=== PATIENT | female | born 1975 | race Caucasian/White ===

== ENCOUNTER 2017-09-08 14:28 | Emergency (ER) | payer MEDICAID | END 2017-09-08 17:15 | disposition home or self-care (01) | LOC: D.ER 14:28 | DX: S00.83XA Contusion of other part of head, initial encounter (principal); S00.33XA Contusion of nose, initial encounter; W22.8XXA Striking against or struck by other objects, initial encounter; Y93.89 Activity, other specified; Y92.89 Other specified places as the place of occurrence of the external cause; F17.200 Nicotine dependence, unspecified, uncomplicated ==

== ENCOUNTER → 2017-11-20 15:19 | Outpatient (CLI) | payer MEDICAID | END | disposition home or self-care (01) | LOC: D.MRI 15:19 | DX: S83.222A Peripheral tear of medial meniscus, current injury, left knee, initial encounter (principal); X58.XXXA Exposure to other specified factors, initial encounter; Y93.89 Activity, other specified; Y92.89 Other specified places as the place of occurrence of the external cause; M25.562 Pain in left knee ==

== ENCOUNTER 2018-01-10 07:35 | Day surgery (SDC) | payer BC ==
[2018-01-09 12:30] LABS: HEMOGLOBIN 12.1 g/dL (12-16); MCH 30.7 pg (26.0-34.0); MCHC 33.6 g/dL (31.0-37.0); MCV 91.4 fL (80.0-100.0); MEAN PLATELET VOLUME 12.1 fL (7.4-10.4); RBC 3.94 10x6/uL (4.00-5.40); RDW 12.4 % (11.5-14.5); WBC 5.6 10x3/uL (4.8-10.8)
[~2018-01-10] VITALS: Ht 172.7 cm; Wt 63.6 kg
--- NOTE | ~2018-01-10 | OP ---
PATIENT NAME: LAISHA MCLAUGHLIN MEDICAL RECORD: [id number] :75 LOCATION:[facility] ADMISSION DATE: SURGEON: NICANOR STANLEY DO DATE OF OPERATION: 01/10/2018 PROCEDURE PERFORMED: Left ACL reconstruction with allograft and left lateral meniscal repair. PREOPERATIVE DIAGNOSES: Left lateral meniscal tear and anterior cruciate ligament tear. POSTOPERATIVE DIAGNOSES: Left lateral meniscal tear and anterior cruciate ligament tear with osteopenia. INDICATIONS: Ms. Mclaughlin is a 42-year-old female who presented to my office with an MRI showing meniscal tear and the ACL tear. She said she had knee pain for quite some time, it has been hurting her for a long time and she felt unstable. She wanted something done. Her knee was catching, popping and locking and she wanted to get it fixed and also felt unstable. We discussed the risks and benefits of the procedure with her and she was consented for the procedure including infection, bleeding, damage to nerves, vessels, any damaged bone fracture, and need for further surgery. DESCRIPTION OF PROCEDURE: The patient was given a block by anesthesia in the preoperative area and then given antibiotics 2 grams Ancef, taken to the operative suite, laid in the supine position, given general anesthetic and then the left lower extremity was prepped and draped in sterile fashion with a tourniquet above the knee under the drapes, positioned for the ACL reconstruction. The procedure began establishing a lateral portal with an 11-blade scalpel and the scope was then entered into the knee. Inspection began. There was nothing seen in the suprapatellar pouch and the patellar looked to track very well. Lateral gutter did not have any loose bodies neither did the medial gutter. The knee was then flexed down and the medial compartment was entered. The medial portal was then established first with an 18-gauge spinal needle and then with an 11-blade scalpel. After this was established, a probe was put in. The medial meniscus was probed. No tears were seen in the menisci. The ACL was probed and seen to be very loose and the knee was figured forward and the lateral compartment was entered. There is a large tear in the posterior horn of the lateral meniscus and the meniscus would sublux into the joint. Due to the peripheral tear that it was, I decided even though she is 42 to fix it due to the instability of the meniscus as such a peripheral tear, 2 Hess and Nephew quick fixes were put in in a horizontal mattress fashion. Fixed the meniscus, secured it as it did not sublux after being probed, after being fixed. The ACL was then taken down and the stumps were left in the areas of the original for the tunnels. The femoral tunnel was done first and the graft was being prepared on the back table is anterior tib graft. The tunnels were 9.5, first drilled in the femoral tunnel, seemed to be in good position and then the tibial tunnel was done, but right over where the ACL stump was from before. This was drilled and then the graft was passed and the button flipped on the lateral cortex of the femur and then tensioning it and we went to put the fixation device from the tibia and as I entered in the tunnel of the tibia, the anterior cortex of the tibia blew out due to the patient's soft bone quality. It was approximately a cm of bone or more that blew out on the anterior tibia. Once this was discovered, the graft was pulled and the button that had flipped on the femur cut out as well. We then switched to a larger button and repassed OPERATIVE REPORT [id number] LAISHA MCLAUGHLIN JOHN the graft and then used a large zip-lock 20 mm toggle button from [employer] and then used a cancellous screw with a washer for fixation on the tibia due to the soft bone quality, had to redo it twice. On the second time, we reamed down to make a washer more flushed and indeed due to the soft quality of bone when it has been tightened down it sunk into the tibia itself, saw how soft her bone was. An x-ray was then taken to ensure that the screw was not out of the posterior cortex of the tibia and it was not. This screw measured to be of 44 with a washer lock washer and we then addressed the tibia and another tunnel was attempted prior to this, but there was not enough room in the notch of the tibia to do that, so we used a DBM plus, impacted into the tunnel over the graft and all the other hardware that was in there was removed including the fixation from [employer]. Having this put in, the graft was taut and we then irrigated the wounds thoroughly. The incision over the tibia was closed with 0 Vicryl closing the fascia over the tibial tunnel and then 2-0 Vicryls in an inverted interrupted on the skin as well as over the femur and then 4-0 Monocryl was used on the femur for a horizontal mattress to close it. The lateral portal, which had been enlarged due to some of the removal, the capsule was closed with 0 Vicryl in a ywggvs-io-cdivn stitch and then the skin was closed with 2-0 Vicryl and then 4-0 Monocryl was put in a horizontal mattress on the skin. The other peg holes did create another medial portal. The other ones were closed with 4-0 Monocryl in inverted interrupted fashion and then 4-0 Monocryl ran on the skin in a subcuticular fashion on the tibia and the large incision. Steri-Strips were then placed over each of the incisions and Adaptic, 4 x 4 and ABD and Webril were placed over the knee and 6-inch Britton was placed over the knee and she was placed in a knee immobilizer and awakened and taken to recovery in stable condition. Tourniquet put at the beginning was 120 minutes and it was let down and then up again for about 5 minutes. Blood loss approximately 100 mL. After the wounds were closed, there was [employer] injectable graft put in through a lateral portal 1 cc. TRANSINT:[id number] Voice Confirmation ID: [id number] DOCUMENT ID: [id number] NICANOR STANLEY DO at 2307 CC: [id number] DICTATION DATE: 01/10/18 1459 MOBILE HOME INSTALLER: 01/10/18 2220 [facility] 01/10/18 [id number] [place] [address]
[2018-01-10 08:02] VITALS: BP 105/68; Ht 172.7 cm; Wt 63.6 kg
[2018-01-10] MEDS ORDERED: PERCOCET 7.5/321 TAB PO (14:40)
[2018-01-10] MEDS ORDERED: HYDROXYZINE HCL50 MG PO (14:41)
== END 2018-01-10 16:30 | disposition home or self-care (01) ==
LOC: D.OPS 07:35 → D.PAN 09:45 → D.OPS 16:30
PROVIDERS: Anesthesiology
DX: S83.282A Other tear of lateral meniscus, current injury, left knee, initial encounter (principal); S83.512A Sprain of anterior cruciate ligament of left knee, initial encounter; F17.200 Nicotine dependence, unspecified, uncomplicated; Z01.812 Encounter for preprocedural laboratory examination

== ENCOUNTER → 2018-04-07 07:08 | Outpatient (CLI) | payer BC ==
[2018-01-10 08:02] VITALS: BMI 21.3
[~2018-04-07 07:08] MED LIST: HYDROXYZINE HCL50 MG PO; PERCOCET 7.5/321 TAB PO
== END | disposition home or self-care (01) ==
LOC: D.US 07:08
DX: R22.42 Localized swelling, mass and lump, left lower limb (principal)

== ENCOUNTER 2018-06-24 06:25 | Day surgery (SDC) | payer BC ==
[2018-06-23 10:24] LABS: HEMATOCRIT 41.7 % (36.0-48.0); HEMOGLOBIN 14.1 g/dL (12-16); MCH 31.4 pg (26.0-34.0); MCHC 33.8 g/dL (31.0-37.0); MCV 92.9 fL (80.0-100.0); MEAN PLATELET VOLUME 12.1 fL (7.4-10.4); RBC 4.49 10x6/uL (4.00-5.40); RDW 13.3 % (11.5-14.5); WBC 7.1 10x3/uL (4.8-10.8)
[2018-06-24] VITALS (9 sets, daily range): BP systolic 91–174; BP diastolic 40–75; Ht 172.7 cm; Wt 65.0 kg
[~2018-06-24] VITALS: Ht 172.7 cm; Wt 65.0 kg
--- NOTE | ~2018-06-24 | OP ---
PATIENT NAME: LAISHA MCLAUGHLIN MEDICAL RECORD: [id number] :75 LOCATION:[facility].2214 ADMISSION DATE: SURGEON: MOMO STANLEY DO DATE OF OPERATION: 06/24/2018 PROCEDURE PERFORMED: Left ACL revision reconstruction and right knee injection. PREOPERATIVE DIAGNOSES: Right knee pain and left knee anterior cruciate ligament failure. POSTOPERATIVE DIAGNOSES: Right knee pain and left knee anterior cruciate ligament failure. INDICATIONS: Ms. Mclaughlin is a 43-year-old female who had her ACL done back in December of this year. During the procedure, her bone in the tibia was too soft to hold the graft, so it was fixed outside the tunnel and then bone graft was packed into a graft hole. Throughout the last 5 months, she has had trouble with her knee locking, giving away and she wanted it redone. It was felt unstable to her and began to impinge. She said she could not flex past 90 degrees. She is understanding of the risks and benefits of procedure and her bone was extremely soft and she was advised to quit smoking, which she did not and that we may have trouble getting the graft to stay at this time too. She voiced understanding of that and consented to the procedure. SURGEON: Momo Stanley DO DESCRIPTION OF PROCEDURE: The patient was given a block by anesthesia in the preoperative area and taken to the operative suite. The left lower extremity was prepped and draped in sterile fashion with a tourniquet above the knee. Once she was prepped and draped, a timeout was performed, everyone was in agreeance with the correct side, site and the patient. Lateral portal was inserted with an 11-blade scalpel and scope was entered into the knee. The suprapatellar pouch was inspected. No loose bodies were seen as well as the medial and lateral gutters. The medial meniscus and lateral meniscus were both inspected as well and probed, and no tears were seen. The tear that had been there previously in the lateral meniscus was well healed, I then checked the ACL and it was loose indeed. A medial portal was established and then the ACL graft was removed with a shaver. The femoral tunnel was then inspected and the femoral bone was found to be extremely soft in the notch. Once the graft was removed from the femoral tunnel, we attempted to remove the button that was on the femur from before and could not be found. This was done with the assistance of fluoroscopy. Apparently, it was borrowed into the cortex. Then, a beeth needle was brought through the cortex into the knee itself and then we passed another one from inside the knee to outside the knee and with a suture on it in order to pass the graft. This was then secured. Then, regained it on the tibia. The tourniquet was let down at a time and it been up for 84 minutes and then the tibial placement had to be around the screw that was in the tibia. Once we got good placement of the pin, we shot up and then we redirected another pin to be more lateral. The other pin was then removed and we prepared the graft. We used an Achilles bone block on one end. I then imbricated or tubularized the Achilles graft, it fit through a 9.5. Then, the tibia was prepared. Once it was confirmed to be in good position, the tunnel placement on x-ray, we started with a 65 reamer and then reamed up to an 8. Then, the dilators were used for a 9 and 9.5. This was in order to preserve the bone due to the soft nature and the graft that had been on the previous tunnel was OPERATIVE REPORT [id number] LAISHA MCLAUGHLIN removed from the tibia with a shaver. Once this was done, the graft was prepared and passed up to the femur through the tibial tunnel. The large button from [employer] with 20-mm in diameter was used on that femur and this was tied down quite and a knot pusher was used to push the knots down. It was tied down to the posterior and lateral femur and seemed to fit well, then the tibia, a whipstitch was used on the graft that was hanging out of the tibia and the graft was tensioned and then an interference screw of 9-mm interference screw was put into the tibial tunnel, had very good purchase and the graft was quite taut. The anterior drawer and Randy's tests were done and seen to have a very good tight knee ACL graft and then it was probed from the inside of the joint and the same was the case with the knee flexed. The graft was tensioned and the interference screw was put in with the knee in extension. A tourniquet had been put back up prior to starting the tunnel in the tibia and then it was let down. It was up for a total, between the 2 times, it was of 2 hours and 8 minutes. The patient was redosed Ancef. The wounds were thoroughly irrigated. The IT band had been incised on the lateral femur, it was closed with 0 Vicryl in a waxxoi-dj-twpud fashion and then 2-0 Vicryl on the skin as well as to the incisions that were on the tibia that were made for the tibial tunnel and then 4-0 Monocryl ran on each of those. In the portal sites, the anteromedial and anterolateral portals were closed with 4-0 Monocryl in inverted interrupted fashion and Steri-Strips were placed over all the wounds. Adaptic, 4 x 4s, ABD was then put on the knee and Webril to secure that and then Britton wrap and then a NIC hose stocking up to the knee. The right knee was then prepped with alcohol prep and then injected with 4 mL of 1% lidocaine without epinephrine and 1 mL of Kenalog, which was 40 mg of Kenalog. Then, Tegaderm and 2 x 2 were put on the patient, over the injection site of the right knee. Blood loss was approximately 50 mL. COMPLICATIONS: None. TRANSINT:[id number] Voice Confirmation ID: [id number] DOCUMENT ID: [id number] MOMO STANLEY DO at 1849 CC: [id number] DICTATION DATE: 06/24/18 1524 [employer] ARTILLERY REPAIRER: 06/24/18 1617 [facility] [address] [place] [address]
[~2018-06-24 06:25] MED LIST changes: +VITAMIN D3400 UNI1 PO
[2018-06-25 05:18] VITALS: BP 100/36
[2018-06-25 05:48] LABS: HEMATOCRIT 30.3 % (36.0-48.0)
[2018-06-25 07:49] VITALS: BP 94/48
[2018-06-25] MEDS ORDERED: VISTARIL50 MG PO (10:38)
[2018-06-25] MEDS ORDERED: OXYCODONE HCL5 MG PO (10:38)
[2018-06-25] MEDS ORDERED: KEFLEX500 MG PO (10:38)
[2018-06-25] MEDS ORDERED: ZOFRAN ODT4 MG/UDTAB PO (10:41)
[2018-06-25 12:12] VITALS: BP 94/44
[2018-06-25] MEDS ORDERED: NICODERM C1 PATCH .2 TRANSDERM ×2 (13:52→13:56)
== END 2018-06-25 18:14 | disposition home or self-care (01) ==
LOC: D.OPS 06:25 → D.MS 06:25 → D.PAN 07:30 → D.OPS 07:30 → D.MS 15:42 → D.OPS 06-25 18:14
PROVIDERS: Anesthesiology; Orthopaedic Surgery
DX: S83.511D Sprain of anterior cruciate ligament of right knee, subsequent encounter (principal); M83.8 Other adult osteomalacia; M77.8 Other enthesopathies, not elsewhere classified

== ENCOUNTER → 2018-10-01 06:30 | Outpatient (CLI) | payer BC ==
[2018-06-24 16:30] VITALS: BMI 21.7
[~2018-10-01 06:30] MED LIST changes: +KEFLEX500 MG PO; +NICODERM C1 PATCH .2 TRANSDERM; +OXYCODONE HCL5 MG PO; +VISTARIL50 MG PO; +ZOFRAN ODT4 MG/UDTAB PO
== END | disposition home or self-care (01) ==
LOC: D.US 06:30
DX: R10.11 Right upper quadrant pain (principal)

== ENCOUNTER → 2018-11-03 12:34 | Outpatient (CLI) | payer BC ==
[2018-06-24 16:30] VITALS: BMI 21.7
== END | disposition home or self-care (01) ==
LOC: D.NM 12:34
DX: R10.11 Right upper quadrant pain (principal)

== ENCOUNTER → 2018-11-27 13:31 | Outpatient (CLI) | payer BC ==
[2018-06-24 16:30] VITALS: BMI 21.7
== END | disposition home or self-care (01) ==
LOC: D.US 13:31
DX: R60.0 Localized edema (principal)

== ENCOUNTER → 2019-01-02 16:01 | Outpatient (CLI) | payer BC ==
[2018-06-24 16:30] VITALS: BMI 21.7
== END | disposition home or self-care (01) ==
LOC: D.CT 16:01
DX: R10.11 Right upper quadrant pain (principal)

== ENCOUNTER → 2019-03-05 07:08 | Outpatient (CLI) | payer BC ==
[~2019-03-05 07:08] MED LIST changes: +PERCOCET 5-3251 TAB PO
== END | disposition home or self-care (01) ==
LOC: D.MRI 07:08
DX: M17.12 Unilateral primary osteoarthritis, left knee (principal)

== ENCOUNTER 2019-07-24 05:26 | Day surgery (SDC) | payer BC ==
[~2019-07-24] VITALS: Ht 172.7 cm; Wt 66.7 kg
[~2019-07-24 05:26] MED LIST changes: -PERCOCET 5-3251 TAB PO
[2019-07-24 05:40] LABS: HEMATOCRIT 40.2 % (36.0-48.0); HEMOGLOBIN 13.7 g/dL (12-16); MCH 31.3 pg (26.0-34.0); MCHC 34.1 g/dL (31.0-37.0); MCV 91.8 fL (80.0-100.0); MEAN PLATELET VOLUME 12.1 fL (7.4-10.4); RBC 4.38 10x6/uL (4.00-5.40); RDW 12.5 % (11.5-14.5)
[2019-07-24 06:13] VITALS: BP 102/61; Ht 172.7 cm; Wt 66.7 kg
[2019-07-24] MEDS ORDERED: PERCOCET 5-3251 TAB PO (08:04)
--- NOTE | 2019-07-24 09:25 | NUR ---
WALKING AROUND ROOM WITH CRUTCHES WITHOUT UNSTEADINESS. DISCHARGE INSTRUCTIONS REVIEWED WITH PATIENT. AWAITING PATIENT'S SPOUSE TO ARRIVE TO PROVIDE TRANSPORTATION. PATIENT LYING IN BED, WATCHING TV. DENIES COMPLAINTS
--- NOTE | 2019-07-24 10:44 | OP ---
PATIENT NAME: LAISHA MCLAUGHLIN MEDICAL RECORD: [id number] :75 LOCATION:[facility] ADMISSION DATE: SURGEON: MOMO STANLEY DO DATE OF OPERATION: 07/24/2019 PROCEDURE PERFORMED: Right knee injection, left knee arthroscopy with partial lateral meniscectomy and abrasion chondroplasty of patella. 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 INDICATIONS: Ms. Mclaughlin is a 44-year-old female, who has undergone 2 ACL reconstructions, on the first one her tibia fratured and did not hold the graft, the second one used an Achilles tendon graft with a bone block on the femur side. At this time, it had not ingrown apparently after the scope. She had had continued knee pain. She has had several rounds of injections and lots of physical therapy, and she had continued knee pain. Had an MRI, which showed the ACL was intact on the MRI. She had some chondromalacia of the patella. Wanted something done about it. So, I told her we would scope it and take a look. She was informed of the risks including infection, bleeding, damage to nerves and vessels, need for further surgery, continued instability, and continued pain. She signed the consent. SURGEON: Momo Stanley DO DESCRIPTION OF PROCEDURE: The patient was taken to the operative suite, laid in supine position, given general anesthetic and LMA was placed. Left lower extremity was prepped and draped in sterile fashion. A time-out was performed and everyone was in agreement with correct side, site, patient and procedure. The procedure was then began with the knee flexed down the lateral portal. The scope was established with 11-blade scalpel. The scope was then entered in the knee. The suprapatellar pouch appeared to be clear of any debris. However, she did see that the grade II chondromalacia of the patella, mostly of the lateral facet. Lateral gutter was clear of debris as well as the medial gutter. The knee was then brought from extension and flexion and then medial compartment was entered. An 18-gauge spinal needle was then used to establish medial portal with an 11-blade scalpel and a trocar was then entered. Medial meniscus was probed and seen to be in good position. No tears in there. The ACL was then probed and seen to be loose. The bone block had migrated into the notch of the knee from the femoral tunnel. The lateral compartment was then entered by [id number]-dp-bojwsrm the knee. A small tear on the very inside of the middle portion of the meniscus. This was trimmed out and chewed back with a shaver to a stable point. The knee was then brought to extension again and the abrasion chondroplasty was done on the patella removing all the cartilage that was hanging down, the loose cartilage. A partial synovectomy was also performed at that time and the water was turned off. Suction was turned on, and the scope was removed from the knee. The portal sites were then closed with 4-0 Monocryl in an inverted interrupted fashion and injected 0.25% Marcaine with epinephrine, about 2 mL in each side of the portals. The right knee was then cleaned with alcohol pad and injection of 40 mg and 4 mL of 1% lidocaine without epinephrine was injected to the suprapatellar pouch of the right knee. The left knee was dressed with Steri-Strips, Adaptic, 4 x 4's, ABD, Webril, Britton wrap, and NIC OPERATIVE REPORT [id number] LAISHA MCLAUGHLIN stocking up to the knee. She was then awakened and taken to recovery in stable condition. BLOOD LOSS: Minimal. COMPLICATIONS: None. TRANSINT:[id number] Voice Confirmation ID: [id number] DOCUMENT ID: [id number] MOMO STANLEY DO at 1044 CC: [id number] DICTATION DATE: 07/24/19 08 DICTATING TRANSCRIBING MACHINE SERVICER: 07/24/19 09 [facility] 07/24/19 [id number] [place] [address]
== END 2019-07-24 09:40 | disposition home or self-care (01) ==
LOC: D.OPS 05:26 → D.PAN 08:30 → D.OPS 09:40
PROVIDERS: Anesthesiology; ATTEND Orthopaedic Surgery
DX: M22.42 Chondromalacia patellae, left knee (principal); M96.89 Other intraoperative and postprocedural complications and disorders of the musculoskeletal system; Y83.9 Surgical procedure, unspecified as the cause of abnormal reaction of the patient, or of later complication, without mention of misadventure at the time of the procedure; M25.561 Pain in right knee

== ENCOUNTER → 2019-09-09 17:21 | Outpatient (CLI) | payer BC ==
[2019-07-24 06:13] VITALS: BMI 22.4
[~2019-09-09 17:21] MED LIST changes: +PERCOCET 5-3251 TAB PO
[2019-09-09 17:37] LABS: BASOPHILS 0.4 % (0-2); EOSINOPHILS 1.4 % (0-7); HEMATOCRIT 39.8 % (36.0-48.0); HEMOGLOBIN 13.3 g/dL (12-16); IMMATURE GRANULOCYTES 0.2 % (0-5); LYMPHOCYTES 41.6 % (15-50); MCH 31.1 pg (26.0-34.0); MCHC 33.4 g/dL (31.0-37.0); MCV 93.2 fL (80.0-100.0); MEAN PLATELET VOLUME 12.1 fL (7.4-10.4); MONOCYTES 8.5 % (2-11); NEUTROPHILS 47.9 % (40-80); PLATELET COUNT 196 10x3/uL (130-400); RBC 4.27 10x6/uL (4.00-5.40); RDW 12.6 % (11.5-14.5); WBC 5.6 10x3/uL (4.8-10.8)
[2019-09-09 18:00] LABS: CARBON DIOXIDE 29.3 mmol/L (21.0-32.0); CREATININE - SERUM 0.9 mg/dL (0.6-1.3); MAGNESIUM - SERUM 2.1 mg/dL (1.8-2.4); POTASSIUM - SERUM 4.3 mmol/L (3.5-5.1)
[2019-09-09 18:05] LABS: % SATURATION 20 % (15-55); IRON 55 ug/dl (35-150); TOTAL IRON BIND CAPACITY 271 ug/dl (260-445); UNSAT IRON BIND CAPACITY 216 ug/dl (150-375)
== END | disposition home or self-care (01) ==
LOC: D.LABREF 17:21
PROVIDERS: ATTEND Orthopaedic Surgery
DX: M25.561 Pain in right knee (principal); R53.83 Other fatigue

== ENCOUNTER 2019-11-20 12:00 | Day surgery (SDC) | payer BC ==
[~2019-11-20] VITALS: Ht 172.7 cm; Wt 44.9 kg
[2019-11-20 12:26] LABS: ANION GAP 10.7 mmol/L (8-16); CALCIUM 8.9 mg/dL (8.5-10.1); CARBON DIOXIDE 29.5 mmol/L (21.0-32.0); CREATININE - SERUM 0.9 mg/dL (0.6-1.3); POTASSIUM - SERUM 4.2 mmol/L (3.5-5.1)
[2019-11-20 12:37] LABS: HEMATOCRIT 41.2 % (36.0-48.0); HEMOGLOBIN 13.8 g/dL (12-16); MCH 31.4 pg (26.0-34.0); MCHC 33.5 g/dL (31.0-37.0); MCV 93.6 fL (80.0-100.0); MEAN PLATELET VOLUME 12.5 fL (7.4-10.4); RBC 4.4 10x6/uL (4.00-5.40); RDW 12.7 % (11.5-14.5)
[2019-11-20 13:10] VITALS: BP 101/59; Ht 172.7 cm; Wt 44.9 kg
[2019-11-20] MEDS ORDERED: ZOFRAN ODT4 MG/UDTAB PO (17:06)
[2019-11-20] MEDS ORDERED: PERCOCET 5-3251 TAB PO (17:07)
--- NOTE | 2019-11-20 17:28 | NUR ---
ICE APPLIED ORDERED. BP IMPROVED AND PRESSURE BAG REMOVED. PT SITTING UP IN BED RESTING QUIETLY. RR NONLABORED ON RA. NO CURRENT NEEDS, WILL CTM.
--- NOTE | 2019-11-21 08:52 | OP ---
PATIENT NAME: LAISHA MCLAUGHLIN MEDICAL RECORD: [id number] :75 LOCATION:[facility] ADMISSION DATE: SURGEON: MOMO STANLEY DO DATE OF OPERATION: 11/20/2019 PROCEDURE PERFORMED: Left knee anterior cruciate ligament debridement. PREOPERATIVE DIAGNOSIS: Left knee anterior cruciate ligament failure with loose body and ACL left knee. POSTOPERATIVE DIAGNOSIS: Left knee anterior cruciate ligament failure with loose body and ACL left knee. INDICATIONS: Ms. Mclaughlin is a 44-year-old female well known to me, who had 2 ACLS done, the last one was a bone block with Achilles tendon graft. She had felt like there is something inside her knee, I went and looked before and did saw some of the bone block, but not all of it, I did not want to debride it or talk about it, but I checked the rest of her knee did a debridement and she did well initially postop and fell and then started having more pain. She wanted that bone block integrated into her femur out. Informed her of the risks including infection, bleeding, damage to nerves or vessels, knee instability. She is of aware that and she signed the consent. SURGEON: Momo Stanley DO DESCRIPTION OF PROCEDURE: The patient was taken to the operative suite, laid in supine position, given a gram of Ancef preoperatively. The patient was sedated and LMA was placed. The left lower extremity was then prepped and draped in sterile fashion. Time-out was performed. Everyone was in agreement with the correct side, site, patient, and procedure. I then began by opening the lateral portal with an 11-blade scalpel, trocar entered and the lateral gutter was inspected as well as suprapatellar pouch, medial gutter. Medial portal was established with 18-gauge spinal needle and 11-blade scalpel. Trocar entered into the knee. I probed what was left of the ACL. There was a small bone chip on the lateral side of it and this was debrided chewed out and also debrided with the shaver. The medial meniscus was then probed and no tears seen in it. The cartilage was in good shape on the medial side and lateral side. There is no damage to the menisci on medial or laterally. I did do a small debridement on the patella at the fat pad. The water was turned off. Suction was turned on and then the portal sites were closed with 4-0 Monocryl in inverted interrupted fashion and Steri-Strips. Adaptic, 4 x 4s, Webril, and Britton wrap were then placed on the knee. She was awakened and taken to recovery in stable condition. ESTIMATED BLOOD LOSS: Minimal. COMPLICATION: None. TRANSINT:[id number] Voice Confirmation ID: [id number] DOCUMENT ID: [id number] OPERATIVE REPORT [id number] LAISHA MCLAUGHLIN MICHAEL D, DO at 0852 CC: [id number] DICTATION DATE: 11/20/19 170 BRIDGE BUILDER: 11/21/19 0307 [facility] 11/20/19 [facility] [address] [place] [address]
== END 2019-11-20 18:40 | disposition home or self-care (01) ==
LOC: D.OPS 12:00
PROVIDERS: Anesthesiology; ATTEND Orthopaedic Surgery
DX: M79.605 Pain in left leg (principal); M25.562 Pain in left knee; S83.512A Sprain of anterior cruciate ligament of left knee, initial encounter; X58.XXXA Exposure to other specified factors, initial encounter

== ENCOUNTER → 2020-06-06 15:06 | Outpatient (CLI) | payer BC ==
[2019-11-20 13:10] VITALS: BMI 22.8
== END | disposition home or self-care (01) ==
LOC: D.MRI 15:06
PROVIDERS: ATTEND Orthopaedic Surgery
DX: M25.552 Pain in left hip (principal)

== ENCOUNTER → 2020-06-09 07:19 | Outpatient (CLI) | payer BC ==
[2019-11-20 13:10] VITALS: BMI 22.8
--- NOTE | ~2020-06-09 | HEMODYNAMI ---
PATIENT:LAISHA MCLAUGHLIN MEDICAL RECORD: [id number] : 75 LOCATION:[facility] ADMISSION DATE: 06/09/20 Generatedon:06/09/20208:16 Patient name: LAISHA MCLAUGHLIN Patient #: [id number] SSN: DO B: 1975 Date of study: 06/09/2020 Page: Of Hemodynamic Procedure Report Patient Data Patient Demographics Procedure consent was obtained First Name: LAISHA Gender: Female Last Name: ARNOLDO : 1975 Middle Initial: JOHN Age: 45 year(s) Patient #: [id number] Race: Unknown Additional ID: [id number] Contact details [address]: [address] [place] [address] State: [place] City: [place] Zip code: [address] Admission Admission Data Admission Date: 06/09/2020 Admission Time: 7:19 Procedure Procedure Types Cath Procedure Peripheral Cath Diagnostic Procedure Miscellaneous Aspiration/Injection (Joint) Procedure Description Procedure Date Procedure Date: 06/09/2020 Procedure Start Time: 8:02 Procedure Staff Name Function Momo Root MD Performing Physician Mike Guthrie RT Monitor Procedure Data Cath Procedure Fluoroscopy Diagnostic fluoroscopy Total fluoroscopy Time: 1 time: 1 min min Diagnostic fluoroscopy Total fluoroscopy dose: 3 dose: 3 mGy mGy Hemodynamics Rest Pre Cath Intra NCS Post Cath Procedure Log Time Note 7:55:25 Mike Guthrie RT (R) (CV) sent for patient. Start room use. 7:56:32 Patient received from Outpatients to IR Alert and oriented. Tansferred to table in Supine position. 7:56:35 Signed procedure consent form obtained from patient. 7:56:36 Full Disclosure recording started 7:56:39 7:56:41 Pre-procedure instructions explained to patient. 7:56:42 Pre-op teaching completed and patient verbalized understanding. 7:57:14 Is patient on blood thinner?No 7:58:21 Left Hip was prepped with betadine and draped in sterile fashion. 8:02:17 Physician arrived 8:02:17 --------ALL STOP TIME OUT------ 8:02:18 Final Timeout: patient, procedure, and site verified with staff and physician. All members of the team are in agreement. 8:02:26 Left groin site verified by team. 8:02:32 Sedation plan: Local Anesthetic Medication:Lidocaine 8:02:43 Procedure started. 8:02:49 Local anesthetic to Left Hip with Lidocaine 1% by Momo Root MD.INITIAL ACCESS ONLY 8:02:52 SAFE-T PLUS MYELOGRAM TRAY opened to sterile field. 8:13:48 Procedure ended.(Physican Out) 8:14:17 Fluoroscopy time 01.00 minutes. 8:14:20 Flurop Dose total: 3 8:14:20 Fluoroscopy dose: 3 mGy 8:14:57 12CC ISOVUE M200 INJECTED 8:15:17 BANDAIDE APPLIED SITE STABE PT SENT HOME Device Usage Item Name Manufacture Quantity Catalog Hospital Part Current Minimal Lot# / Number Charge Number Stock Stock Serial# Code SAFE-T [employer] 1 [id number] PLUS MYELOGRAM TRAY Signature Audit [place] Stage Time Signature Unsigned Intra-Procedure 06/09/2020 Mike 8:15:57 AM Jerri RT (R) (CV) [facility] [address] [place] [address]
== END | disposition home or self-care (01) ==
LOC: D.RAD 07:19
PROVIDERS: ATTEND Orthopaedic Surgery
DX: M25.552 Pain in left hip (principal)

== ENCOUNTER → 2020-08-02 16:39 | Outpatient (CLI) | payer BC ==
[2019-11-20 13:10] VITALS: BMI 22.8
== END | disposition home or self-care (01) ==
LOC: D.US 16:39
PROVIDERS: ATTEND Orthopaedic Surgery
DX: R22.42 Localized swelling, mass and lump, left lower limb (principal)

== ENCOUNTER → 2020-08-18 20:44 | Outpatient (CLI) | payer BC ==
[2019-11-20 13:10] VITALS: BMI 22.8
[2020-08-18 22:22] LABS: % SATURATION 38 % (15-55); IRON 131 ug/dl (35-150); TOTAL IRON BIND CAPACITY 342 ug/dl (260-445); UNSAT IRON BIND CAPACITY 211 ug/dl (150-375)
[2020-08-18 22:49] LABS: MAGNESIUM - SERUM 2.3 mg/dL (1.8-2.4); THYROID STIMULATING HORMONE 1.62 uIU/mL (0.36-3.74)
== END | disposition home or self-care (01) ==
LOC: D.LABREF 20:44
PROVIDERS: ATTEND Clinical Nurse Specialist Family Health
DX: Z00.00 Encounter for general adult medical examination without abnormal findings (principal); R53.83 Other fatigue